=== PATIENT | female | born 1960 | race African-American/Black ===

== ENCOUNTER 2018-01-06 11:32 | Emergency (ER) | payer OTHER, BC ==
[~2018-01-06] VITALS: Ht 165.1 cm; Wt 69.7 kg
[~2018-01-06 11:32] MED LIST: HYDROCODON-ACE1 EAC7 PO; MOTRIN800 MG PO; NAPROSYN500 MG PO; NORCO 7.5/321 TABLET PO; ULTRACET1 TABLET PO
[2018-01-06 13:12] VITALS: BP 110/55
== END 2018-01-06 13:14 | disposition home or self-care (01) ==
LOC: EME 11:32
DX: H20.052 Hypopyon, left eye (principal); B20 Human immunodeficiency virus [HIV] disease; B19.10 Unspecified viral hepatitis B without hepatic coma; Z87.891 Personal history of nicotine dependence; Z88.5 Allergy status to narcotic agent
CPT/HCPCS: 99281; 99284